=== PATIENT | male | born 1990 | race Caucasian/White ===

== ENCOUNTER 2019-08-18 10:42 | Inpatient (IN) | payer BC ==
[~2019-08-18] VITALS: Ht 175.3 cm; Wt 83.0 kg
--- NOTE | 2019-08-18 10:51 | NUR ---
ED Nurse Note: Pt brought in by ambulance. Pt had witnessed seizure for 1 minute at home. Pt states he lost consciousness. Pt has oral trauma and L shoulder pain 10/10. L arm ROM 1/5. Pt is alert and orientedx4, weak. Ambulance states he was given adenosine, cardioversion, fluids in amblance. Pt states he drank alcohol before seizure.
[2019-08-18] MEDS ORDERED: Morphine Sulfate 4mg/ml Inj (IV USE ONLY) IVP ONE (11:00)
[2019-08-18 11:11] VITALS: BP 156/99
[2019-08-18 11:19] LABS: BASOPHILS % (AUTO) 1.5 % (0.0-2.0); EOSINOPHILS % (AUTO) 0.5 % (0.0-3.0); HEMATOCRIT 36.1 % (42.0-52.0); HEMOGLOBIN 12.9 G/DL (14.2-18.0); LYMPHOCYTES % (AUTO) 20.1 % (20.0-45.0); MEAN CORPUSCULAR VOLUME 97 FL (80-99); MONOCYTES % (AUTO) 8.3 % (1.0-10.0); NEUTROPHILS % (AUTO) 69.6 % (45.0-75.0); PLATELET COUNT 118 K/UL (150-450); RED BLOOD COUNT 3.74 M/UL (4.70-6.10); RED CELL DISTRIBUTION WIDTH 14.3 % (11.6-14.8); WHITE BLOOD COUNT 6.6 K/UL (4.8-10.8)
--- NOTE | 2019-08-18 11:20 | NUR ---
ED Nurse Note: Dr Chirinos aware of VS: 156/99, HR 129, pain 10/10.
--- NOTE | 2019-08-18 11:21 | Emergency Room Report ---
History of Present Illness General Chief Complaint: Seizure Source: Patient, Friend, EMS Present Illness HPI 29-year-old male presents ED for evaluation. Brought in by EMS status post seizure. Witnessed by girlfriend in bed. Upon arrival patient BP high. NSVT. Hypoglycemic. Was given adenosine without cardioversion. Was given Versed to prepare for cardioversion but after Versed BP great improved. Patient states he has had similar episodes where his heart rate became very fast and was treated. Does not take medication. States that he traveled here last night from [place]. Does not know why he got on the plane. Denies any prior history of seizures. Denies alcohol or drug use. Denies chest pain. Complaining of left shoulder pain. No other aggravating relieving factors. Denies any other associated symptoms Allergies: Coded Allergies: No Known Allergies (Unverified , 08/18/19) Patient History Past Medical History: none Past Surgical History: none Pertinent Family History: none Social History: Denies: smoking, alcohol use, drug use Immunizations: UTD Reviewed Nursing Documentation: PMH: Agreed; PSxH: Agreed Nursing Documentation-PMH Past Medical History: No Stated History Review of Systems All Other Systems: negative except mentioned in HPI Physical Exam Vital Signs Date Time Temp Pulse Resp B/P (MAP) Pulse Ox O2 Delivery O2 Flow Rate FiO2 08/18/19 10:54 97.3 127 20 159/99 (119) 99 Room Air 08/18/19 11:11 100 Sp02 EP Interpretation: reviewed, normal General Appearance: alert, GCS 15, non-toxic, mild distress Head: normocephalic, atraumatic Eyes: bilateral eye normal inspection, bilateral eye PERRL ENT: hearing grossly normal, normal pharynx, no angioedema, normal voice Neck: full range of motion, supple/symm/no masses Respiratory: chest non-tender, lungs clear, normal breath sounds, speaking full sentences Cardiovascular #1: no edema, tachycardia Cardiovascular #2: 2+ carotid (R), 2+ carotid (L), 2+ radial (R), 2+ radial (L) , 2+ dorsalis pedis (R), 2+ dorsalis pedis (L) Gastrointestinal: normal bowel sounds, non tender, soft, non-distended, no guarding, no rebound Rectal: deferred Genitourinary: normal inspection, no CVA tenderness Musculoskeletal: back normal, normal range of motion, gait/station normal, tender - L shoulder Neurologic: alert, motor strength/tone normal, oriented x3, sensory intact, responsive, speech normal Psychiatric: judgement/insight normal, memory normal, no suicidal/homicidal ideation, no delusions, anxious Reflexes: 3+ bicep (R), 3+ bicep (L), 3+ tricep (R), 3+ tricep (L), 3+ knee (R) , 3+ knee (L) Skin: no rash Lymphatic: no adenopathy Procedures Critical Care Time Critical Care Time i. I feel this is a highly complex case requiring extensive working including EKG/Rhythm strip, Xray/CT/US, Blood/urine lab work, repeat exams while in ED, and administration of strong opiates/narcotics for pain control, admission to hospital or close patient follow up. Total time: 30 min bedside evaluation and treatment excludes procedures (EKG). Reason for critical care: SVT, seizure Possible complications: hypotension, hypertension, [place], shock, arrhythmias, metabolic acidosis, end organ damage, respiratory failure. Interventions: labs, EKG, IVFs, CT, Adenosine, ativan, Course: Patient presenting in SVT. Status post seizure. Given initially adenosine in the field. Converted. Developed SVT again in the ED. Treated with adenosine and Ativan and converted to sinus tach. Consultations: nursing staff, EMS, family Performed by: Dr Chirinos Tolerated well condition = serious j. because of unstable vital signs this patient had a condition that could potentially threaten life or limb. I feel this is a critical patient who required my full attention while patient was considered critical. Total Critical Care Time excluding procedures was greater than 30 minutes Medical Decision Making Diagnostic Impression: Primary Impression: Epileptic seizure, generalized Additional Impressions: Alcohol withdrawal Qualified Codes: F10.230 - Alcohol dependence with withdrawal, uncomplicated SVT (supraventricular tachycardia) Humeral head fracture Qualified Codes: S42.292A - Other displaced fracture of upper end of left humerus, initial encounter for closed fracture ER Course Hospital Course 29-year-old M presents to ED status post seizure. Differential diagnosis includes- breakthrough seizure, alcohol abuse, noncompliance with medication Clinical course Patient placed on stretcher. Initial history and physical I ordered labs, IV fluids, Ativan, chest x-ray, shoulder x-ray ,CT brain Labs-electrolytes okay, no leukocytosis, hemoglobin/hematocrit stable. LFTs elevated EKG - sinus tachycardia no acute ischemic changes inteprreted by me CT Brain ok CXR - no acute process L shoulder xray - humeral head fx, no dislocation Patient developed another round of SVT. Treated with adenosine with cardioversion. Patient initially altered but more awake. stating he drinks alcohol daily. has been sober for 3 days. likely withdrawal. placed in shoulder sling discussed with Dr Lake. Case discussed with Dr. Foy and he agreed to accept the patient to his service for further care and support. i. I feel this is a highly complex case requiring extensive working including EKG/Rhythm strip, Xray/CT/US, Blood/urine lab work, repeat exams while in ED, and administration of strong opiates/narcotics for pain control, admission to hospital or close patient follow up. Diagnosis - seizure, alcohol withdrawal, SVT, humeral head fx admitted to telemetry in serious condition Labs Test 08/18/19 11:00 08/18/19 12:10 White Blood Count 6.6 K/UL (4.8-10.8) Red Blood Count 3.74 M/UL (4.70-6.10) Hemoglobin 12.9 G/DL (14.2-18.0) Hematocrit 36.1 % (42.0-52.0) Mean Corpuscular Volume 97 FL (80-99) Mean Corpuscular Hemoglobin 34.3 PG (27.0-31.0) Mean Corpuscular Hemoglobin Concent 35.5 G/DL (32.0-36.0) Red Cell Distribution Width 14.3 % (11.6-14.8) Platelet Count 118 K/UL (150-450) Mean Platelet Volume 6.7 FL (6.5-10.1) Neutrophils (%) (Auto) 69.6 % (45.0-75.0) Lymphocytes (%) (Auto) 20.1 % (20.0-45.0) Monocytes (%) (Auto) 8.3 % (1.0-10.0) Eosinophils (%) (Auto) 0.5 % (0.0-3.0) Basophils (%) (Auto) 1.5 % (0.0-2.0) Sodium Level 138 MMOL/L (136-145) Potassium Level 3.3 MMOL/L (3.5-5.1) Chloride Level 101 MMOL/L (98-107) Carbon Dioxide Level 20 MMOL/L (21-32) Anion Gap 17 mmol/L (5-15) Blood Urea Nitrogen 6 mg/dL (7-18) Creatinine 1.2 MG/DL (0.55-1.30) Estimat Glomerular Filtration Rate > 60 mL/min (>60) Glucose Level 226 MG/DL (74-106) Calcium Level 8.5 MG/DL (8.5-10.1) Total Bilirubin 2.2 MG/DL (0.2-1.0) Direct Bilirubin 0.5 MG/DL (0.0-0.3) Aspartate Amino Transf (AST/SGOT) 144 U/L (15-37) Alanine Aminotransferase (ALT/SGPT) 85 U/L (12-78) Alkaline Phosphatase 98 U/L (46-116) Troponin I 0.000 ng/mL (0.000-0.056) Pro-B-Type Natriuretic Peptide 78 pg/mL (0-125) Total Protein 6.3 G/DL (6.4-8.2) Albumin 3.8 G/DL (3.4-5.0) Globulin 2.5 g/dL Albumin/Globulin Ratio 1.5 (1.0-2.7) Urine Opiates Screen Positive (NEGATIVE) Urine Barbiturates Screen Negative (NEGATIVE) Phencyclidine (PCP) Screen Negative (NEGATIVE) Urine Amphetamines Screen Negative (NEGATIVE) Urine Benzodiazepines Screen Positive (NEGATIVE) Urine Cocaine Screen Negative (NEGATIVE) Urine Marijuana (THC) Screen Negative (NEGATIVE) EKG Diagnostic Results Rate: tachycardiac Rhythm: NSR ST Segments: no acute changes ASA given to the pt in ED: No Rhythm Strip Diag. Results EP Interpretation: yes Rhythm: NSR, no PVC's, no ectopy Chest X-Ray Diagnostic Results Chest X-Ray Diagnostic Results : Chest X-Ray Ordered: Yes # of Views/Limited/Complete: 1 View Indication: Other EP Interpretation: Yes Interpretation: no consolidation, no effusion, no pneumothorax, no acute cardiopulmonary disease Impression: No acute disease Electronically Signed by: Electronically signed by Dio Chirinos MD Other X-Ray Diagnostic Results Other X-Ray Diagnostic Results : X-Ray ordered: L sholder # of Views/Limited Vs Complete: 3 View Indication: Pain EP Interpretation: Yes Interpretation: no dislocation, no soft tissue swelling, other - humeral head fx Impression: Other - humeral head fx Electronically Signed by: Electronically signed by Dio Chirinos MD CT/MRI/US Diagnostic Results CT/MRI/US Diagnostic Results : Imaging Test Ordered: CT Head Impression no acute process Last Vital Signs Date Time Temp Pulse Resp B/P (MAP) Pulse Ox O2 Delivery O2 Flow Rate FiO2 08/18/19 11:11 129 23 Room Air 100 08/18/19 10:54 97.3 159/99 (119) 99 Status: improved Disposition: ADMITTED INPATIENT Condition: Serious Dio Chirinos MD Aug 18, 2019 11:21
[2019-08-18] MEDS ORDERED: LORazepam Inj 2mg/ml 1ml IV ONE (11:30)
[2019-08-18 11:34] LABS: ANION GAP 17 mmol/L (5-15); BLOOD UREA NITROGEN 6 mg/dL (7-18); CALCIUM 8.5 MG/DL (8.5-10.1); CARBON DIOXIDE 20 MMOL/L (21-32); CHLORIDE 101 MMOL/L (98-107); CREATININE 1.2 MG/DL (0.55-1.30); POTASSIUM 3.3 MMOL/L (3.5-5.1); SODIUM 138 MMOL/L (136-145)
[2019-08-18 11:45] LABS: ALANINE AMINOTRANSFERASE 85 U/L (12-78); ALBUMIN 3.8 G/DL (3.4-5.0); ALBUMIN/GLOBULIN RATIO 1.5 (1.0-2.7); ALKALINE PHOSPHATASE 98 U/L (46-116); ASPARTATE AMINO TRANSFERASE 144 U/L (15-37); BILIRUBIN,TOTAL 2.2 MG/DL (0.2-1.0)
[2019-08-18 11:47] LABS: BILIRUBIN,DIRECT 0.5 MG/DL (0.0-0.3)
--- NOTE | 2019-08-18 12:18 | Diagnostic Imaging Report ---
Indication: Dyspnea Comparison: None A single view chest radiograph was obtained. Findings: Cardiomediastinal appearance is within normal limits for age. The lungs are clear. Pulmonary vascularity is appropriate. The diaphragmatic contour is smooth and costophrenic angles are sharp. No pleural effusions are identified. The bones are unremarkable. Impression: No acute findings
[2019-08-18] MEDS ORDERED: Adenosine 6mg/2ml Inj IVP ONE (12:30)
--- NOTE | 2019-08-18 12:50 | NUR ---
ED Nurse Note:adenosin was given pt. tolerated well
--- NOTE | 2019-08-18 12:53 | Diagnostic Imaging Report ---
Indication: left shoulder pain Findings: 3 views of the left shoulder were obtained. Views are limited because of immobility and pain. There is slight irregularity of the humeral neck with a oblique lucency on the medial side which may be a remnant of the growth plate. However, nondisplaced fracture is not excluded. CT is recommended. Alignment of the shoulder appears normal. IMPRESSION: Limited x-rays evaluation of the left shoulder. CT is recommended.
--- NOTE | 2019-08-18 12:55 | Diagnostic Imaging Report ---
Indication: Seizure Technique: Contiguous 5 mm thick transaxial imaging of the head obtained in a Siemens Sensation [address] scanner. Soft tissue and bone windows generated. Automatic Exposure Control was utilized. Total Dose length Product (DLP): 1125.7mGycm CT Dose Index Volume (CTDIvol): 53.4 mGy Comparison: none Findings: The size and configuration of the cortical sulci, basal cisterns, and ventricles are within normal limits for age. There is no mass effect, midline shift, or edema identified. There is no evidence of acute hemorrhage or abnormal intra-axial or extra-axial fluid collections. The bones and soft tissues are unremarkable. Impression: No mass effect, edema or acute bleed. The CT scanner at [facility] is accredited by the [employer] and the scans are performed using dose optimization techniques as appropriate to a performed exam including Automatic Exposure control.
[2019-08-18] MEDS ORDERED: Folic Acid 1 MG, Magnesium Sulfate 2,000 MG, Multivitamin - 12 Injection 10 ML, Thiamin... IV ONE ×5 (14:15)
[2019-08-18] MEDS ORDERED: LORazepam Inj 2mg/ml 1ml IV PRN (14:15)
[2019-08-18] MEDS ORDERED: Dextrose 50% 25ml Syringe IV PRN (14:30)
[2019-08-18] MEDS ORDERED: OMEPRAZOLE10 M1 ORAL (14:35)
--- NOTE | 2019-08-18 14:50 | NUR ---
ED Nurse Note: Pt transferred to tele unit. Pt took all belongings. Min RN received pt.
--- NOTE | 2019-08-18 14:50 | NUR ---
NURSE NOTES: Dr. Foy is present in tele and admission orders verified with Dr. Foy. Dr. Foy stated that the patient does not need neurology consult and DVT ppx.
--- NOTE | 2019-08-18 15:10 | NUR ---
NURSE NOTES: Received report from Eva YUN. Pt transferred from ED via rmorton with RN and operations tech. cafeteria monitor applied. IV site in RAC 22G SL patent and asymptomatic. Bed in lowest position and locked. Side raisx3 up and padded for seizure precaution. AOX4 and able to make needs known. Call light within easy reach. Will continue to plan of care.
[2019-08-18 15:15] VITALS: BP 155/97
--- NOTE | 2019-08-18 15:20 | NUR ---
NURSE NOTES: Asked Eva RN@ED to call me to verify the orders of CT scan of left shoulder not done at ED. No phone call received from Eva.
[2019-08-18 16:00] VITALS: BP 156/101
[2019-08-18] MEDS ORDERED: 1/2 NS IV SCH (16:00)
[2019-08-18] MEDS: LORazepam Inj 2mg/ml 1ml IV SCH ×2 (16:00→22:06)
[2019-08-18] MEDS ORDERED: POTASSIUM CHLORIDE IV SCH (16:00)
[2019-08-18] MEDS ORDERED: MAGNESIUM SULFATE IV SCH (16:00)
--- NOTE | 2019-08-18 16:13 | NUR ---
NURSE NOTES: Dr. Foy paged for orders for left shoulder pain
--- NOTE | 2019-08-18 16:15 | NUR ---
NURSE NOTES: Awaiting for new orders for left should pain from Dr. Foy
--- NOTE | 2019-08-18 16:24 | NUR ---
GROUTMAN NOTE SW received a notification. SW met w/ pt and assessed his needs. Pt presents as A&O4x and cooperative. Pt reports he is a social ETOH drinker and he declined to receive substance abuse rehab resource. Pt reports he is interested in AA meetings. SW encouraged pt to F/U w/ his plan upon DC. RUDS positive for Benzo and Opiates. PT denies any other drugs/substance abuse except ETOH. Pt denies SI/HI. Pt currently stays at his girlfriend's house in [place]. Pt was unable to recall the girlfriend's address. Emergency contact provided: Hodan Noel (girlfriend) [phone]. Pt plans to return his girlfriend's home upon DC. SW to F/U as needed. Signed: 08/18/19 at 1627 by AQUILINO CHAO <Co-Signature Required>
--- NOTE | 2019-08-18 16:53 | Diagnostic Imaging Report ---
Indication: Left shoulder pain. Abnormal x-ray. Seizure Technique: Continuous helical transaxial imaging of the left shoulder was obtained. Coronal and Sagittal 2-D reformats were also obtained. Study obtained in a Siemens sensation [address] Total Dose length Product (DLP): 208.[address] Dose Index Volume (CTDIvol): 9.1 mGy Comparison: Plain x-ray earlier today Findings: The examination demonstrates a acute fracture of the anteromedial aspect of the left humeral head in association with posterior dislocation of the humeral head relative to the glenoid. There is impaction of the medial aspect of the humeral head on the posterior lip of the glenoid. There is anteriorly displaced fracture fragment measuring approximately 2.4 x 1.2 x 2.4 cm (AP, transverse, craniocaudal dimensions respectively). There is no fracture of the glenoid identified. The remainder of the scapula appears normal. The other osseous structures are normal. IMPRESSION: Acute posterior dislocation of the glenohumeral joint associated with an impacted fracture involving the anteromedial aspect of the humeral head and a 2.4 x 1.2 x 2.4 cm displaced bone fragment. The CT scanner at [facility] is accredited by the [employer] and the scans are performed using dose optimization techniques as appropriate to a performed exam including Automatic Exposure control.
[2019-08-18] MEDS: Insulin NovoLOG Flexpen S/S (Mod) SUBQ SCH ×2 (18:01→21:00)
[2019-08-18] MEDS: Folic Acid 1 MG, Magnesium Sulfate 2,000 MG, Multivitamin - 12 Injection 10 ML in NS w/... IV SCH (18:27)
[2019-08-18] MEDS: Thiamine 100mg in D5W 55ml IVPB SCH (18:27)
--- NOTE | 2019-08-18 18:43 | NUR ---
NURSE NOTES: Dr. Elliott paged for getting parameter for heart rate. The patient has been sinus tachycardia with heart rate of 130-150. Awaiting for reply.
--- NOTE | 2019-08-18 19:00 | NUR ---
NURSE NOTES: Metoprolol 50mg po q12 ordered for rate control.
[2019-08-18] MEDS ORDERED: Metoprolol Tartrate 50mg tab ORAL SCH (19:15)
--- NOTE | 2019-08-18 19:30 | History and Physical Report ---
DATE OF ADMISSION: 08/18/2019 CHIEF COMPLAINT/REASON FOR HOSPITALIZATION: The patient is admitted with the seizure, alcohol withdrawal. HISTORY OF PRESENT ILLNESS: The patient is a heavy alcohol drinker 6 to 9 double shots per day, last drink about three days ago, presented apparently with a witnessed seizure and tongue biting today. There is no history of chronic seizure disorder. He has had heavy alcoholism for many years. He has had apparently an nonsustained supraventricular tachycardia in the emergency room. He was given an adenosine cardioversion. The patient had similar episodes of tachycardia in the past. PAST SURGICAL HISTORY: Surgery for the right thumb. ALLERGIES: None known. MEDICATIONS: Omeprazole 20 mg daily and ibuprofen p.r.n. for pain. HABITS: He is a heavy alcohol drinker. Smokes occasionally. Uses marijuana. Denies other drugs. SYSTEM REVIEW: HEAD, EYES, EARS, NOSE, AND THROAT: Vision and hearing is good. ENDOCRINE: No known diabetes or thyroid disease. PULMONARY: No asthma, TB, or chronic cough. CARDIAC: See history of present illness. No history of chest pain. GASTROINTESTINAL: No GI bleeding or ulcers. He has had heartburn. GENITOURINARY: No dysuria, hematuria, or kidney stones. NEUROLOGIC: No prior episodes of seizures or stroke. PHYSICAL EXAMINATION: GENERAL: The patient is alert, well-developed man, in no acute distress. VITAL SIGNS: Temperature 97.3, pulse 129, respiratory rate 22, and blood pressure 156/99. He has just had an immobilizer placed on his left shoulder. HEAD, EYES, EARS, NOSE, AND THROAT: Ocular motions intact in all directions. Oral mucosa is moist. NECK: No adenopathy. LUNGS: Clear. HEART: Regular rhythm. No murmur. ABDOMEN: Soft without organomegaly or masses. EXTREMITIES: No edema, cyanosis, or clubbing. Left shoulder immobilized as above. NEUROLOGIC: He is alert and oriented with clear speech. Ocular motions intact in all directions. Smile symmetric. Tongue is midline. He is somewhat tremulous. LABORATORY DATA: Labs are reviewed on the computer. IMPRESSION: 1. Alcoholic withdrawal syndrome. 2. Acute onset seizure secondary to alcohol withdrawal. 3. Alcoholic liver disease with elevated liver enzymes. 4. Left shoulder fracture. 5. Hypokalemia. 6. Elevated glucose 226 on a single reading. 7. Positive urine screen for opiates and benzodiazepines. It is not clear if this was taken after receiving medications in the emergency room. PLAN: 1. Treat for alcohol withdrawal. 2. Observe for seizures. 3. I discussed the risk of withdrawal seizures and the risks of long-term alcoholism with the patient. Martin Foy M.D. DR: MARCELINA JOB#: [id number] CC:
--- NOTE | 2019-08-18 19:40 | NUR ---
HAND-OFF: Report given to Edith YUN. Pt remains stable..
--- NOTE | 2019-08-18 19:50 | NUR ---
NURSE NOTES: Pt alert and oriented x4, IV site in RAC 22G SL patent and asymptomatic. Bed in lowest position and locked. Side raisx3 up and padded for seizure precautions. Call light within easy reach. girlfriend at bedside as pt is forgetful and tries to get out of bed. bed alarm on and asked pt and girlfriend to remeber to call for assistance. There is MD order to ambulate only with assistance. Will continue to plan of care.
[2019-08-18 20:00] VITALS: BP 126/81
[2019-08-19] VITALS (11 sets, daily range): BP systolic 127–163; BP diastolic 62–103
[2019-08-19] MEDS ORDERED: 1/2 NS IV SCH (01:00)
[2019-08-19] MEDS ORDERED: MAGNESIUM SULFATE IV SCH (01:00)
[2019-08-19] MEDS ORDERED: POTASSIUM CHLORIDE IV SCH (01:00)
[2019-08-19] MEDS: POTASSIUM CHLORIDE IV SCH ×4 (02:00→22:27)
[2019-08-19] MEDS: 1/2 NS IV SCH ×4 (02:00→22:27)
[2019-08-19] MEDS: MAGNESIUM SULFATE IV SCH ×4 (02:00→22:27)
[2019-08-19] MEDS: LORazepam Inj 2mg/ml 1ml IV SCH ×4 (03:00→21:43)
--- NOTE | 2019-08-19 06:11 | Consultation ---
DATE OF CONSULTATION: 08/18/2019 CONSULTING PHYSICIAN: Elpidio Elliott M.D. REQUESTING PHYSICIAN: Martin Foy M.D. REASON FOR CONSULTATION: Supraventricular tachycardia. HISTORY OF PRESENT ILLNESS: This 29-year-old alcoholic, who drinks 6 to 9 double shots per day and had his last drink three days ago, presented to the hospital following a witnessed seizure with tongue biting. He has not had prior seizures according to historical data, but has had alcoholism for many years. In the emergency room, an episode of supraventricular tachycardia was noted and treated with a dose of intravenous adenosine. The patient apparently has had prior such episodes in the past. I have been asked to assist with cardiovascular care. ALLERGIES: None. MEDICATIONS: Prior to admission include omeprazole 20 daily and ibuprofen p.r.n. pain. PAST MEDICAL HISTORY: Otherwise unremarkable. SOCIAL HISTORY: Alcoholism, occasional smoking, and regular marijuana. No other evidence of drug use. REVIEW OF SYSTEMS: Review of systems is otherwise unremarkable. PHYSICAL EXAMINATION: VITAL SIGNS: Afebrile. Blood pressure 156/99, pulse 129, and respiratory rate 22. HEENT: Conjunctivae are pink. Oropharynx clear. NECK: Supple. No adenopathy or jugular venous distention. LUNGS: Clear. CARDIAC: Regular rhythm. Rapid rate. Normal S1 and S2. No murmur. ABDOMEN: Soft and nontender. EXTREMITIES: No edema. s There is an immobilizer over the left shoulder. There is some resting tremor. LABORATORY DATA: EKG - sinus tachycardia, no acute abnormalities. CT scan of the brain with no acute abnormalities. Chest x-ray, no acute process. Left shoulder x-ray with a humeral head fracture. White count 6.6 and hemoglobin 12.9. Potassium 3.3, BUN 6, creatinine 1.2, and glucose 226. IMPRESSION: 1. Paroxysmal supraventricular tachycardia. 2. Withdrawal seizures. 3. Alcoholism. 4. Left shoulder fracture. 5. Hyperglycemia. 6. Rule out diabetes mellitus. 7. Hypokalemia. PLAN: 1. Cardiac monitoring. 2. Seizure precautions. 3. Banana bag. 4. Beta-blockade for now. 5. Replace potassium. 6. Check magnesium. 7. Check thyroid panel. 8. Echocardiogram to assess for structural heart disease. Elpidio Elliott M.D. DR: LORIE JOB#: [id number] CC:
[2019-08-19] MEDS: Insulin NovoLOG Flexpen S/S (Mod) SUBQ SCH ×4 (06:30→21:00)
--- NOTE | 2019-08-19 07:26 | NUR ---
HAND-OFF: Report given to COURT Melton
[2019-08-19 07:54] LABS: BASOPHILS % (AUTO) 0.5 % (0.0-2.0); EOSINOPHILS % (AUTO) 0.2 % (0.0-3.0); HEMATOCRIT 32.1 % (42.0-52.0); HEMOGLOBIN 11.4 G/DL (14.2-18.0); LYMPHOCYTES % (AUTO) 9.8 % (20.0-45.0); MEAN CORPUSCULAR VOLUME 97 FL (80-99); MONOCYTES % (AUTO) 5.9 % (1.0-10.0); NEUTROPHILS % (AUTO) 83.7 % (45.0-75.0); PLATELET COUNT 119 K/UL (150-450); RED BLOOD COUNT 3.31 M/UL (4.70-6.10); RED CELL DISTRIBUTION WIDTH 14.6 % (11.6-14.8)
--- NOTE | 2019-08-19 08:00 | NUR ---
NURSE NOTES: Patient stable AOx4 complaining of pain to left shoulder 10/10. No s/sx of distress. Patient very restless. RR even and unlabored on RA. Fluids infusing. Side rails upx2, call light within reach, bed low and locked.
[2019-08-19] MEDS: Metoprolol Tartrate 50mg tab ORAL SCH ×2 (08:28→21:43)
[2019-08-19 08:43] LABS: ALANINE AMINOTRANSFERASE 77 U/L (12-78); ALBUMIN 3.7 G/DL (3.4-5.0); ALBUMIN/GLOBULIN RATIO 1.3 (1.0-2.7); ALKALINE PHOSPHATASE 87 U/L (46-116); ANION GAP 11 mmol/L (5-15); ASPARTATE AMINO TRANSFERASE 122 U/L (15-37); BILIRUBIN,TOTAL 2.3 MG/DL (0.2-1.0); BLOOD UREA NITROGEN 3 mg/dL (7-18); CALCIUM 8.6 MG/DL (8.5-10.1); CARBON DIOXIDE 24 MMOL/L (21-32); CHLORIDE 102 MMOL/L (98-107); CREATININE 0.7 MG/DL (0.55-1.30); POTASSIUM 3.5 MMOL/L (3.5-5.1); SODIUM 137 MMOL/L (136-145)
[2019-08-19 09:40] LABS: BILIRUBIN,DIRECT 0.7 MG/DL (0.0-0.3)
--- NOTE | 2019-08-19 11:01 | Consultation ---
Consult Note Consult Note patient seen and evaluated. Left shoulder posterior dislocation after seizure. Acute large anterior humeral head fracture. Recommend Closed reduction and possible open reduction. May require ORIf of the large humeral head fracture although this may need to be transfered to higher level of care. I will proceed with closed reduction ROGELIO. ThAdam Lake MD Aug 19, 2019 11:01
--- NOTE | 2019-08-19 12:13 | General Progress Note ---
Assessment/Plan Problem List: (1) Alcohol withdrawal ICD Codes: F10.239 - Alcohol dependence with withdrawal, unspecified SNOMED: 287257029 Qualifiers: Qualified Codes: F10.230 - Alcohol dependence with withdrawal, uncomplicated (2) SVT (supraventricular tachycardia) ICD Codes: I47.1 - Supraventricular tachycardia SNOMED: 4479266 (3) Humeral head fracture ICD Codes: S42.293A - Other displaced fracture of upper end of unspecified humerus, initial encounter for closed fracture SNOMED: 773306893 Qualifiers: Qualified Codes: S42.292A - Other displaced fracture of upper end of left humerus, initial encounter for closed fracture (4) Epileptic seizure, generalized ICD Codes: G40.309 - Generalized idiopathic epilepsy and epileptic syndromes, not intractable, without status epilepticus SNOMED: 11642635 Assessment/Plan: neuro stable, cleeared for ortho surg Subjective Constitutional: Reports: weakness HEENT: Reports: no symptoms Cardiovascular: Reports: no symptoms Respiratory: Reports: no symptoms Gastrointestinal/Abdominal: Reports: no symptoms Genitourinary: Reports: no symptoms Neurologic/Psychiatric: Reports: no symptoms Endocrine: Reports: no symptoms Hematologic/Lymphatic: Reports: no symptoms Allergies: Coded Allergies: No Known Allergies (Unverified , 08/18/19) Objective Last 24 Hour Vital Signs Date Time Temp Pulse Resp B/P (MAP) Pulse Ox O2 Delivery O2 Flow Rate FiO2 08/19/19 08:28 106 127/62 08/19/19 08:00 98.4 109 20 143/100 (114) 98 08/19/19 04:00 98.1 96 18 156/91 (112) 98 08/19/19 04:00 76 08/19/19 00:00 114 08/19/19 00:00 98.1 76 16 154/92 (112) 97 08/18/19 21:12 Room Air 08/18/19 20:00 136 08/18/19 20:00 98.1 84 16 126/81 (96) 97 08/18/19 19:54 150 150/100 08/18/19 16:00 98.1 124 22 156/101 (119) 97 08/18/19 16:00 122 08/18/19 15:23 Room Air 08/18/19 15:15 99.0 20 155/97 (116) 99 08/18/19 15:00 123 08/18/19 14:50 98.1 115 21 145/85 100 Room Air 08/18/19 12:38 125 Intake and Output 08/18/19 08/19/19 19:00 07:00 Intake Total 1236 ml 236 ml Balance 1236 ml 236 ml Intake Oral 236 ml 236 ml IV Total 1000 ml # Voids 2 7 Laboratory Tests 08/19/19 06:25: White Blood Count 10.0#, Red Blood Count 3.31L, Hemoglobin 11.4L, Hematocrit 32.1L, Mean Corpuscular Volume 97, Mean Corpuscular Hemoglobin 34.4H, Mean Corpuscular Hemoglobin Concent 35.5, Red Cell Distribution Width 14.6, Platelet Count 119L, Mean Platelet Volume 6.2L, Neutrophils (%) (Auto) 83.7H, Lymphocytes (%) (Auto) 9.8L, Monocytes (%) (Auto) 5.9, Eosinophils (%) (Auto) 0.2, Basophils (%) (Auto) 0.5, Sodium Level 137, Potassium Level 3.5, Chloride Level 102, Carbon Dioxide Level 24, Anion Gap 11, Blood Urea Nitrogen 3L, Creatinine 0.7, Estimat Glomerular Filtration Rate > 60, Glucose Level 106#, Hemoglobin A1c 5.6, Calcium Level 8.6, Magnesium Level 2.1, Total Bilirubin 2.3H , Direct Bilirubin 0.7H, Aspartate Amino Transf (AST/SGOT) 122H, Alanine Aminotransferase (ALT/SGPT) 77, Alkaline Phosphatase 87, Total Protein 6.5, Albumin 3.7, Globulin 2.8, Albumin/Globulin Ratio 1.3, Thyroid Stimulating Hormone (TSH) 0.877 Height (Feet): 5 Height (Inches): 9.00 Weight (Pounds): 183 General Appearance: no apparent distress, alert EENT: normal ENT inspection Neck: normal alignment Cardiovascular: normal rate, regular rhythm Respiratory/Chest: lungs clear Abdomen: non tender Extremities: other - L shoulder pain Neurologic: color stripper II-XII grossly normal Martin Foy MD Aug 19, 2019 12:13
--- NOTE | 2019-08-19 14:00 | NUR ---
NURSE NOTES: Patient taken down for procedure.
[2019-08-19] MEDS ORDERED: LR 1000ml 1,000 ML IVLG SCH (14:06)
[2019-08-19] MEDS ORDERED: Bupivacaine w/Epi 0.5% 30ml Vial INJ ONE (14:06)
[2019-08-19] MEDS ORDERED: Ropivacaine 5mg/ml Vial 20ml INJ ONE (14:06)
--- NOTE | 2019-08-19 14:13 | Anethesia Preoperative Eval ---
Anesthesia Pre-op PMH/ROS General Date of Evaluation: Aug 19, 2019 Time of Evaluation: 14:31 Anesthesiologist: Tres ASA Score: ASA 2 - Emergency Mallampati Score Class I : Soft palate, uvula, fauces, pillars visible Class II: Soft palate, uvula, fauces visible Class III: Soft palate, base of uvula visible Class IV: Only hard plate visible Mallampati Classification: Class II Surgeon: Fay Diagnosis: Left Humeral Head FX Surgical Procedure: Closed Reduction L Humeral Head Anesthesia History: none Family History: no anesthesia problems Allergies: Coded Allergies: No Known Allergies (Unverified , 08/18/19) Medications: see eMAR Patient NPO?: Yes Past Medical History Cardiovascular: Reports: HTN, arrhythmia - NSVT Neurologic/Psychiatric: Reports: other - ETOH Seizure Anesthesia Pre-op Phys. Exam Physician Exam Last Vital Signs Date Time Temp Pulse Resp B/P (MAP) Pulse Ox O2 Delivery O2 Flow Rate FiO2 08/19/19 12:00 97.7 85 20 151/103 (119) 98 08/19/19 09:00 Room Air 08/18/19 11:11 100 Constitutional: NAD Neurologic: CN 2-12 intact Cardiovascular: RRR Respiratory: CTA Gastrointestinal: S/NT/ND Airway Exam Mallampati Score: Class II MO: full ROM: full Teeth: missing, intact Anesthesia Pre-op A/P Labs Hematology Test 08/19/19 06:25 White Blood Count 10.0 K/UL (4.8-10.8) # Red Blood Count 3.31 M/UL (4.70-6.10) L Hemoglobin 11.4 G/DL (14.2-18.0) L Hematocrit 32.1 % (42.0-52.0) L Mean Corpuscular Volume 97 FL (80-99) Mean Corpuscular Hemoglobin 34.4 PG (27.0-31.0) H Mean Corpuscular Hemoglobin Concent 35.5 G/DL (32.0-36.0) Red Cell Distribution Width 14.6 % (11.6-14.8) Platelet Count 119 K/UL (150-450) L Mean Platelet Volume 6.2 FL (6.5-10.1) L Neutrophils (%) (Auto) 83.7 % (45.0-75.0) H Lymphocytes (%) (Auto) 9.8 % (20.0-45.0) L Monocytes (%) (Auto) 5.9 % (1.0-10.0) Eosinophils (%) (Auto) 0.2 % (0.0-3.0) Basophils (%) (Auto) 0.5 % (0.0-2.0) Chemistry Test 08/19/19 06:25 Sodium Level 137 MMOL/L (136-145) Potassium Level 3.5 MMOL/L (3.5-5.1) Chloride Level 102 MMOL/L (98-107) Carbon Dioxide Level 24 MMOL/L (21-32) Anion Gap 11 mmol/L (5-15) Blood Urea Nitrogen 3 mg/dL (7-18) L Creatinine 0.7 MG/DL (0.55-1.30) Estimat Glomerular Filtration Rate > 60 mL/min (>60) Glucose Level 106 MG/DL (74-106) # Hemoglobin A1c 5.6 % (4.3-6.0) Calcium Level 8.6 MG/DL (8.5-10.1) Magnesium Level 2.1 MG/DL (1.8-2.4) Total Bilirubin 2.3 MG/DL (0.2-1.0) H Direct Bilirubin 0.7 MG/DL (0.0-0.3) H Aspartate Amino Transf (AST/SGOT) 122 U/L (15-37) H Alanine Aminotransferase (ALT/SGPT) 77 U/L (12-78) Alkaline Phosphatase 87 U/L (46-116) Total Protein 6.5 G/DL (6.4-8.2) Albumin 3.7 G/DL (3.4-5.0) Globulin 2.8 g/dL Albumin/Globulin Ratio 1.3 (1.0-2.7) Thyroid Stimulating Hormone (TSH) 0.877 uiU/mL (0.358-3.740) Risk Assessment & Plan Assessment: ASA 2E Plan: GA, SED, GlideScope Go Status Change Before Surgery: No Pre-Antibiotics Dru Gram Ancef IV Given Within 1 Hr of Incision: Yes Time Given: 14:41 Matthew Joshua MD Aug 19, 2019 14:13
--- NOTE | 2019-08-19 14:14 | 48 Hour Post Anesthesia Eval ---
Post Anesthesia Evaluation Procedure: Closed Reduction L Humeral Head Date of Evaluation: Aug 19, 2019 Time of Evaluation: 17:44 Blood Pressure Systolic: 153 0: 78 Pulse Rate: 89 Respiratory Rate: 18 Temperature (Fahrenheit): 98.2 O2 Sat by Pulse Oximetry: 99 Airway: patent Nausea: No Vomiting: No Pain Intensity: 1 Hydration Status: adequate Cardiopulmonary Status: Stable Mental Status/LOC: patient returned to baseline Follow-up Care/Observations: 0 Post-Anesthesia Complications: 0 Follow-up care needed: N/A Matthew Joshua MD Aug 19, 2019 14:14
--- NOTE | 2019-08-19 14:14 | Immediate Post-Op Evaluation ---
Immediate Post-Op Evalulation Immediate Post-Op Evalulation Procedure: Closed Reduction L Humeral Head vs ORIF Date of Evaluation: Aug 19, 2019 Time of Evaluation: 15:40 IV Fluids: 700 LR Blood Products: 0 Estimated Blood Loss: 0 Urinary Output: 0 Blood Pressure Systolic: 158 Blood Pressure Diastolic: 67 Pulse Rate: 82 Respiratory Rate: 16 O2 Sat by Pulse Oximetry: 100 Temperature (Fahrenheit): 97.6 Pain Score (1-10): 1 Nausea: No Vomiting: No Complications 0 Patient Status: awake, reacts, patent, extubated, none Hydration Status: adequate Dru Gram Ancef IV Given Within 1 Hr of Incision: Yes Time Given: 14:41 Matthew Joshua MD Aug 19, 2019 14:14
[2019-08-19] MEDS ORDERED: Ketorolac 30mg Inj IV PRN ×2 (14:15)
[2019-08-19] MEDS ORDERED: Meperidine 25mg/0.5ml Inj (FOR RIGORS ONLY) IV PRN (14:15)
[2019-08-19] MEDS ORDERED: Labetalol 5mg/ml 20ml vial IV PRN (14:15)
[2019-08-19] MEDS ORDERED: HYDROcodone/Acetamin 7.5/325 tab ORAL PRN (14:15)
[2019-08-19] MEDS ORDERED: Hydromorphone 0.5mg/0.5ml inj IVP PRN (14:15)
[2019-08-19] MEDS ORDERED: Midazolam 2mg/2ml Inj IVP PRN (14:15)
[2019-08-19] MEDS ORDERED: oxyCODONE HCL/Acetaminophen 5/325mg ORAL PRN (14:15)
[2019-08-19] MEDS ORDERED: LORazepam Inj 2mg/ml 1ml IV PRN (14:15)
[2019-08-19] MEDS ORDERED: Atropine Sulfate 0.4mg/ml inj IVP PRN (14:15)
[2019-08-19] MEDS ORDERED: fentaNYL 100 mcg/2 mL IV PRN (14:15)
[2019-08-19] MEDS ORDERED: DiphenhydrAMINE 50mg/ml Inj IVP PRN (14:15)
[2019-08-19] MEDS ORDERED: Metoclopramide 10mg/2ml Inj IVP PRN (14:15)
[2019-08-19] MEDS ORDERED: HYDROcodone/Acetamin 5/325 tab ORAL PRN (14:15)
[2019-08-19] MEDS ORDERED: Sodium Chloride 10ml vial INJ ONE (14:23)
[2019-08-19] MEDS ORDERED: Propofol 200mg/20ml IV ONE (14:23)
[2019-08-19] MEDS ORDERED: Lidocaine 1% MPF 10mg/ml 5ml ONE (14:23)
[2019-08-19] MEDS ORDERED: Dexamethasone 4mg/ml vial ONE ×2 (14:23→14:26)
[2019-08-19] MEDS ORDERED: Ropivacaine 5mg/ml Vial 30ml INJ ONE (14:26)
[2019-08-19] MEDS ORDERED: EPINEPHrine 1mg/1ml Amp ONE (14:26)
[2019-08-19] MEDS ORDERED: LR 1000ml ONE (14:30)
--- NOTE | 2019-08-19 14:42 | Pre-Procedure Note/Attestation ---
Pre-Procedure Note/Attestation Complete Prior to Procedure Planned Procedure: left Procedure Narrative: Shoulder closed reduction vs open reduction and Internal fixation Indications for Procedure Pre-Operative Diagnosis: Left shoulder posterior fx dislocation Attestation I attest that I discussed the nature of the procedure; its benefits; risks and complications; and alternatives (and the risks and benefits of such alternatives ), prior to the procedure, with the patient (or the patient's legal wire rope sales representative). I attest that, if there was a reasonable possibility of needing a blood transfusion, the patient (or the patient's legal wire rope sales representative) was given the [facility] standardized written summary, pursuant to the Stew [employer]ie Blood Safety Act ([place] Health and Safety Code # 1645, as amended). I attest that I re-evaluated the patient just prior to the surgery and that there has been no change in the patient's H&P, except as documented below: Adam Aponte MD Aug 19, 2019 14:42
--- NOTE | 2019-08-19 15:14 | Brief Operative Note ---
Immediate Post Operative Note Operative Note Chief Complaint: left shoulder dislocation Pre-op Diagnosis: Left shoulder posterior fx dislocation Procedure: left shoulder closed reduction with application of abduction and external rotation sling. as well as manipulation under anesthesia for stability Post-op Diagnosis: same as pre-op Findings: consistent w/pre-op dx studies Surgeon: md fran Anesthesiologist: md cory Anesthesia: general Specimen: none Complications: none Condition: stable Fluids: ns Estimated Blood Loss: none Drains: none Implant(s) used?: No Adam Aponte MD Aug 19, 2019 15:14
[2019-08-19] MEDS: Folic Acid 1 MG, Magnesium Sulfate 2,000 MG, Multivitamin - 12 Injection 10 ML in NS w/... IV SCH (17:33)
[2019-08-19] MEDS: Thiamine 100mg in D5W 55ml IVPB SCH (17:34)
--- NOTE | 2019-08-19 19:51 | NUR ---
HAND-OFF: Report given to Edith YUN. Patient stable. Plan of care endorsed.
--- NOTE | 2019-08-19 19:52 | NUR ---
NURSE NOTES: Pt alert and oriented x4, IV site in RAC 22G SL patent and asymptomatic. Bed in lowest position and locked. Side rails x3 up and padded for seizure precautions, also on fall precautions. Call light within easy reach. girlfriend at bedside as pt is forgetful and tries to get out of bed. bed alarm on and asked pt and girlfriend to remember to call for assistance. There is MD order to ambulate only with assistance. Will continue to plan of care.
--- NOTE | 2019-08-19 20:45 | Consultation ---
DATE OF CONSULTATION: 08/19/2019 REASON FOR CONSULTATION: Left shoulder acute posterior fracture and dislocation locked in after a seizure. CONSULTING PHYSICIAN: Adam Aponte M.D. REQUESTING PHYSICIAN: Dr. Martin Foy. BRIEF HISTORY: The patient is a pleasant 29-year-old gentleman who is traveling from [place] with his girlfriend to [place]. He has had history of alcoholism. He drinks approximately 8 to 9 double shots a day. He states, the girl friend witnessed him having a seizure in bed yesterday evening. He came to the [place] ER and was evaluated. Initial x-ray was suspicious for fracture. A CT scan showed a posterior dislocation of the left shoulder with anterior fracture of the humeral head. He has been stabilized at this point, and I discussed this case with Dr. Foy, Dr. Foy, who is the admitting physician felt that this is an urgent case, and would like to proceed with close reduction at this point. He has had no numbness, tingling, or weakness. He has had no other significant injuries. He has had a history of previous seizures in the past. PAST MEDICAL HISTORY: Significant history of gastritis and previous alcohol withdrawal and seizures. PAST SURGICAL HISTORY: None. MEDICATION: He is taking omeprazole. ALLERGIES: No known drug allergies. SOCIAL HISTORY: He lives in [place]. He smokes occasionally and smokes marijuana. He drinks 8 to 9 double shots a day. REVIEW OF SYSTEMS: Noncontributory. PHYSICAL EXAMINATION: GENERAL: The patient reveals that he has got significant bruising of the posterior aspect of left shoulder. He cannot really lift his arm. He cannot internally rotate very well. He has got significant limitation range of motion. NEUROLOGICAL: Grossly intact X-RAYS: X-ray and CT of the left shoulder is reviewed. There is a posterior dislocation with a large anterior fragment that could be appreciated on the CT scan. This is a locked in posterior dislocation. IMPRESSION: Left shoulder significant posterior dislocation with large anterior fragment of the humerus that is fractured and displaced. DISCUSSION: At this time, I had a discussion with the patient and his girlfriend. Discussed the nature of the significant injury that he has had. I explained to him that the most important thing is to reduce this fracture. At this point, my plan is to proceed with closed reduction and splinting external rotation of his shoulder. If fragment can be fixed once he stabilized medically, he would be flying back to [place] on Wednesday and he would like to follow with his orthopedic surgeon there to proceed with any definitive surgical treatment on the anterior shoulder of his fracture. All questions were answered. At this time, we will go ahead and proceed with closed reduction versus open reduction as necessary. All questions were answered for the patient and he understands the nature of problem and significant risk of infection, bleeding, neurovascular complication, possible malunion, possibility of nonunion, possible redislocation, possible need for further surgery and other complications that may arise, as well as the avascular necrosis that may arise as a result of this dislocation. All questions were answered. We will go ahead and proceed with the procedure as soon as possible. This case was discussed with Dr. Foy. Adam Aponte M.D. DR: Frederic JOB#: [id number] CC:
--- NOTE | 2019-08-19 22:30 | Progress Note ---
DATE: 08/19/2019 CARDIOLOGY PROGRESS NOTE SUBJECTIVE: The patient had sinus tachycardia yesterday. No recurring SVT noted. He continues to have shoulder pain. Blood pressure is labile as a result of his pain. Monitored rhythm sinus and sinus tachycardia. PHYSICAL EXAMINATION: VITAL SIGNS: Blood pressure 127/62, earlier 143/100. Heart rate 76 to 109, respiratory 16 to 20, afebrile. LUNGS: Clear. CARDIAC: Regular rhythm and rate. Normal S1, S2 with a fourth heart sound. ABDOMEN: Soft, nontender. No edema. EXTREMITIES: Right upper extremity is immobilize. Sodium 137, potassium 3.5, BUN 3, creatinine 0.7, bicarb 24, magnesium 2.1. Albumin 3.7. TSH 0.9. LABORATORY DATA: White count 10, hemoglobin 11.4. IMPRESSION: 1. Paroxysmal supraventricular tachycardia, now suppressed. 2. Withdrawal seizures. 3. Alcoholism. 4. Shoulder fracture. 5. Borderline potassium level. PLAN: 1. Maintain IV hydration. Potassium replacement. Pain control. Beta-bijan therapy. Vitamin supplementation. 2. Proceed with orthopedic surgery with minimally increased perioperative cardiovascular risk. Elpidio Elliott M.D. DR: JESUS JOB#: [id number] CC:
[2019-08-20] VITALS: BP 135/76
--- NOTE | 2019-08-20 01:00 | Operative Note - Dictated ---
DATE OF OPERATION: 08/19/2019 PREOPERATIVE DIAGNOSIS: Left shoulder posterior locked in dislocation with 2 cm fracture of the humeral head. POSTOPERATIVE DIAGNOSIS: Left shoulder posterior locked in dislocation with 2 cm fracture of the humeral head. PROCEDURES: 1. Left shoulder closed reduction under general anesthesia. 2. Examination of the left shoulder under anesthesia after reduction for stability, which revealed that shoulder was stable at the waist level, but unstable with full flexion up to 150 degrees with posterior dislocation. Examination of left shoulder under anesthesia for stability with good stability at 0 degrees, 30 degrees, 45 degrees of abduction with internal and external rotation. At 90 degrees of full flexion and posterior directed force, the shoulder could be subluxed posteriorly, but however, there was no julián re-dislocation. 3. Using image intensifier by surgeon less than 1 hour to evaluate the reduction. 4. Application of external rotation abduction sling. SURGEON: Adam Aponte M.D. [employer]: Toyin Harris PA-C. ANESTHESIOLOGIST: Matthew Joshua M.D. ANESTHESIA: General LMA anesthesia. ESTIMATED BLOOD LOSS: None. COMPLICATIONS: None. BRIEF HISTORY: The patient is a pleasant 29-year-old gentleman who had alcoholic withdrawal seizure and had a posterior fracture dislocation of the shoulder, who was admitted to the ER. A CT scan confirmed this after he was stabilized from medical standpoint and after full discussion of risks, benefits of the surgery and complications associated with it including infection, bleeding, neurovascular complication, possible pain, avascular necrosis, and need for further surgery including open reduction and internal fixation of anterior piece, he opted for a closed reduction at this time. It was felt that closed reduction is necessary on emergency basis and due to the fact that he lives in [place] and he would like to have definitive care be done in [place], who placed him in a sling and he will follow up with the orthopedic surgeon in [place]. OPERATIVE PROCEDURE: The patient was brought to the operating room table and was placed supine. All pressure points were well padded. General LMA anesthesia was induced. A time-out was performed and image intensifier was brought in. The initial x-ray showed a posterior dislocation. The examination showed that he was locked and he could not externally rotate his arm. At this point, the shoulder was gently forward flexed, internally rotated, and gentle traction was used and the shoulder was reduced in this fashion. Once this was completed, the stability of the shoulder was checked. There was excellent stability at 0 degrees, 35 degrees, 45 degrees, and 90 degrees abduction with internal and external rotation, however, with full flexion beyond 90 degrees and posterior directed force, with slight subluxation it could be palpated. The shoulder, however, remained reduced. After examination under anesthesia, was checked and appeared to be excellent and postreduction image intensifiers confirmed this. At this point, an external rotated abducted sling was created using abduction pillow and the patient was placed in a sling and will be taken to recovery room in stable condition. He will remain in sling at all times with external rotation. Adam Aponte M.D. DR: Ish JOB#: [id number] CC:
[2019-08-20] MEDS: LORazepam Inj 2mg/ml 1ml IV SCH ×2 (03:11→08:34)
[2019-08-20 04:00] VITALS: BP 131/80
[2019-08-20] MEDS: Insulin NovoLOG Flexpen S/S (Mod) SUBQ SCH ×2 (06:00→11:30)
[2019-08-20] MEDS: 1/2 NS IV SCH ×2 (06:02→11:31)
[2019-08-20] MEDS: MAGNESIUM SULFATE IV SCH ×2 (06:02→11:31)
[2019-08-20] MEDS: POTASSIUM CHLORIDE IV SCH ×2 (06:02→11:31)
--- NOTE | 2019-08-20 07:25 | NUR ---
HAND-OFF: Report given to COURT Melton
--- NOTE | 2019-08-20 07:32 | NUR ---
NURSE NOTES: Patient stable AOx4 resting in bed. No s/sx of distress. Patient pulled off sling and abduction pillow from shoulder and pulled off monitor worker. Placed back on patient. Patient reiterated the importance of keeping sling with abduction pillow to maintain external rotation and keeping monitor worker on. Patient verbalized understanding but needs to be reinforced. RR even and unlabored on RA. Fluids infusing. Side rails upx2, call light within reach, bed low and locked. Addendum: 08/20/19 at 0824 by BRONSON POLLOCK RN Dr. Levy called and message left.
[2019-08-20 08:00] VITALS: BP 135/87
[2019-08-20 08:31] LABS: ANION GAP 9 mmol/L (5-15); BLOOD UREA NITROGEN 7 mg/dL (7-18); CARBON DIOXIDE 25 MMOL/L (21-32); CHLORIDE 107 MMOL/L (98-107); CREATININE 0.8 MG/DL (0.55-1.30); POTASSIUM 4.2 MMOL/L (3.5-5.1); SODIUM 141 MMOL/L (136-145)
[2019-08-20] MEDS: Metoprolol Tartrate 50mg tab ORAL SCH (08:35)
[2019-08-20 12:00] VITALS: BP 133/75
--- NOTE | 2019-08-20 13:10 | NUR ---
NURSE NOTES: Patient discharged. Discharge paperwork given to patient. Patient verbalized understanding that he needs to follow up with an orthopaedic surgeon when he returns to [place]. Patient also verbalized understanding that sling needs to stay on with arm externally rotated. IV d/ch and taken off air sampling and monitoring. Patient walked down to hospital entrance.
--- NOTE | 2019-08-20 15:45 | Discharge Summary ---
DATE OF ADMISSION: 08/18/2019 DATE OF DISCHARGE: 08/20/2019 HISTORY OF PRESENT ILLNESS: The patient presented with alcohol withdrawal and left humerus fracture. PERTINENT PHYSICAL FINDINGS: LUNGS: Clear. HEART: Regular rhythm. ABDOMEN: Soft. EXTREMITIES: He is mildly tremulous. Pain in the left shoulder. COURSE IN THE HOSPITAL: The patient was on a protocol for alcohol withdrawal and had no ill effects. Note that he had a seizure prior to this admission one time and no further seizures or significant neurologic problems. The patient was seen by Dr. Aponte and had left shoulder posterior locking dislocation with 2 centimeter fracture of humeral head, had closed reduction under general anesthesia. The patient tolerated procedure well and was discharged home in stable condition. FINAL DIAGNOSES: 1. Alcohol withdrawal seizure. 2. Alcohol withdrawal syndrome. 3. Alcoholism. 4. Left shoulder posterior dislocation, fracture of the humeral head. DISCHARGE DISPOSITION: Home on a regular diet. Lorazepam 1 mg b.i.d. for 3 days. He will travel to [place] and follow up for further care. He was encouraged to follow up for alcoholism program. Martin Foy M.D. DR: Lon JOB#: [id number] CC:
--- NOTE | 2019-08-20 22:30 | Progress Note ---
DATE: 08/20/2019 CARDIOLOGY PROGRESS NOTE SUBJECTIVE: The patient is status post closed reduction of his left shoulder yesterday without any anesthesia complications. OBJECTIVE: VITAL SIGNS: Blood pressure 135/87, pulse 77, respiratory rate 18, afebrile, oxygen saturation 98% on room air. Left shoulder site clean with no drainage. LUNGS: Clear. CARDIAC: Regular. Normal S1, S2. ABDOMEN: Soft. No edema. Cardiac monitoring reviewed by me. No recurring SVT. IMPRESSION: 1. Shoulder fracture status post surgical intervention. 2. Alcoholism. 3. Withdrawal seizures. 4. Paroxysmal SVT precipitated by alcohol intake and withdrawal. 5. Hypokalemia corrected. PLAN: 1. Outpatient monitoring of electrolyte parameters. 2. Encourage alcohol anonymous. 3. Continue beta-bijan and vitamin supplementations following discharge. Elpidio Elliott M.D. DR: JESUS JOB#: [id number] CC:
--- NOTE | 2019-08-21 11:50 | NUR ---
*-* INSURANCE *-* ALL CLINICALS HAVE BEEN FAXED TO: [facility] REF# [id number] P: [phone] Fl: [phone]
--- NOTE | 2019-08-21 16:33 | Diagnostic Imaging Report ---
INDICATION: Pain, intraoperative TECHNIQUE: Intraoperative imaging Fluoroscopy time: 15.5 seconds Total dose: 0.43263 mGym2 Total number of images: 6 COMPARISON: 08/18/[address] FINDINGS: Intra-images demonstrate apparent successful reduction of previously demonstrated left shoulder fracture/dislocation IMPRESSION: Intraoperative imaging, as described
== END 2019-08-20 13:10 | disposition home or self-care (01) | DRG 563 ==
LOC: EDBD 10:42 → EMR 11:54 → EDBEDREQ 12:43 → 2E 14:20
PROC: 0PSDXZZ Reposition Left Humeral Head, External Approach (ICD-10-PCS; principal; 2019-08-19 14:30)
DX: S42.292A Other displaced fracture of upper end of left humerus, initial encounter for closed fracture (principal); F10.239 Alcohol dependence with withdrawal, unspecified; I47.1 Supraventricular tachycardia; G40.89 Other seizures; S43.005A Unspecified dislocation of left shoulder joint, initial encounter; E87.6 Hypokalemia; X58.XXXA Exposure to other specified factors, initial encounter; R73.9 Hyperglycemia, unspecified
CPT/HCPCS: 36415; 70450; 71045; 76000; 80048; 80053; 80307; 82248; 82962; 83036; 83735; 83880; 84443; 84484; 85025; 93005; 94003; 94150; 96361; 96365; 96375; 99291; J1815; J2405; J2795; J7030